=== PATIENT | female | born 1980 | race Caucasian/White ===

== ENCOUNTER 2016-10-12 07:30 | Inpatient (IN) | payer OTHER ==
[~2016-10-12 07:30] MED LIST: DEXTROSE 5%-LACTATED RINGERS 1,000 ML IV SCH
--- NOTE | 2016-10-12 08:46 | PN ---
Progress Note (short form) - Note Progress Note: cx 3 cm 75 vx -3 mi, fhr cat1, pitocin rba discussed
[2016-10-12] MEDS ORDERED: BUTORPHANOL TARTRATE 1 MG/ML VIAL IVPUSH PRN (08:47)
[2016-10-12] MEDS ORDERED: PROMETHAZINE HCL 25 MG/1 ML VIAL IVPUSH ONE (08:47)
[2016-10-12] MEDS ORDERED: OXYTOCIN 15 UNITS/ LR 250 ML 250 ML IV SCH (09:00)
[2016-10-12] MEDS ORDERED: DEXTROSE 5%-LACTATED RINGERS 1,000 ML IV SCH (09:00)
[2016-10-12 09:32] LABS: BASOPHIL 0.5 % (0-2.0); EOSINOPHIL 2.1 % (0-4.5); MCH 20.9 pg (25.7-33.7); MCHC 31.1 g/dl (32.0-36.0); MEAN CELL VOLUME 67.3 fl (80-96); MEAN PLT VOLUME 8.7 fl (7.5-11.1); NEUTROPHILS 73.4 % (42.8-82.8); PLATELET COUNT 146 K/MM3 (134-434); RDW 17.6 % (11.6-15.6); WHITE BLOOD COUNT 5.8 K/mm3 (4.0-10.0)
[2016-10-12 09:45] LABS: INR 0.89 (0.82-1.09); PROTHROMBIN TIME (PATIENT) 9.8 SEC (9.98-11.88)
[2016-10-12 09:48] LABS: ACTIVATED PTT 25.1 SECONDS (26.9-34.4)
[2016-10-12 09:50] LABS: ANION GAP 9 (8-16); CALCIUM 8.4 mg/dL (8.5-10.1); CO2 24 mmol/L (21-32); CREATININE 0.6 mg/dL (0.55-1.02); GLUCOSE,RANDOM 76 mg/dL (74-106)
[2016-10-12 10:04] LABS: ANISOCYTOSIS 1+; HYPOCHROMIA 3+; MICROCYTOSIS 1+; PLATELET ESTIMATE ADEQUATE (NORMAL); POLYCHROMASIA 1+
[2016-10-12 10:07] VITALS: BMI 51.5
[2016-10-12] MEDS ORDERED: TUBERCULIN PPD 5 TU/0.1ML SYRINGE (IN PATIENT USE ONLY) ID ONE (11:00)
--- NOTE | 2016-10-12 15:43 | PN ---
Progress Note (short form) - Note Progress Note: cx 4 cm 880 vx -3 mi, fjhr cat1, contraction q 3 min
[2016-10-12] MEDS: FENTANYL/BUPIVACAINE/NS/PF - PCEA - 50 ML DISP.SYRIN EP SCH (17:15)
[2016-10-12] MEDS ORDERED: ELECTROLYTE-148 SOLN 500 ML IV SCH (19:00)
--- NOTE | 2016-10-12 19:32 | PN ---
Progress Note (short form) - Note Progress Note: cx full 100 vx 0 mi arom, clear ,wants to push
--- NOTE | 2016-10-12 19:38 | HP ---
Past Medical History - Primary Care Physician PCP:: Terrell Gutiérrez - Admission Chief Complaint: 39 weeks, labor History of Present Illness: 36 yo f g 2 p1001 edc 10/13/16 cx 3 cm 75 vx -3 mi, fhr cat 1, irregular contraction History Source: Patient Limitations to Obtaining History: No Limitations - Past Medical History Pulmonary: Yes: Sleep Apnea Gastrointestinal: Yes: GERD ...: 2 ...Para: 1 ...Term: 0 ...: 0 ...Spon : 0 ...Induced : 0 ...Multiple Gestation: 0 ...LMP: 01/08/16 ... Weeks Gestation by Dates: 39.6 ...EDC by Dates: 10/13/16 ...EDC by Sono: 10/13/16 Heme/Onc: Yes: Anemia - Past Surgical History Past Surgical History: Yes: Bariatric Surgery (s/p abdominoplasty, liposuction) Hx Myomectomy: No Hx Transabdominal Cerclage: No Additional Surgical History: nerve ablation lt foot. abdominopalsty, liposuction - Smoking History Smoking history: Never smoked Have you smoked in the past 12 months: No Aproximately how many cigarettes per day: 0 - Alcohol/Substance Use Hx Alcohol Use: No - Social History History of Recent Travel: No Home Medications - Allergies Allergies/Adverse Reactions: Allergies Allergy/AdvReac Type Severity Reaction Status Date / Time No Known Allergies Allergy Verified 10/12/16 17:55 - Home Medications Home Medications: Ambulatory Orders Vit/Iron Fumarate/FA [ Tablet] 1 tablet PO DAILY 01/16/15 Calcium Carbonate [Calcium] 1 tab PO DAILY 10/12/16 Review of Systems - Review of Systems Constitutional: reports: No Symptoms Eyes: reports: No Symptoms HENT: reports: No Symptoms Neck: reports: No Symptoms Cardiovascular: reports: No Symptoms Respiratory: reports: No Symptoms Gastrointestinal: reports: Abdominal Pain Genitourinary: reports: No Symptoms Integumentary: reports: No Symptoms Neurological: reports: No Symptoms Endocrine: reports: No Symptoms Hematology/Lymphatic: reports: No Symptoms Psychiatric: reports: No Symptoms Physical Exam - Maternity Vital Signs: Vital Signs Temperature 97.9 F 10/12/16 18:23 Pulse Rate 91 H 10/12/16 18:45 Respiratory Rate 18 10/12/16 18:45 Blood Pressure 124/78 10/12/16 18:45 O2 Sat by Pulse Oximetry (%) 100 10/12/16 18:45 Constitutional: Yes: Well Nourished, No Distress, Calm, Obese Eyes: Yes: WNL, Conjunctiva Clear, EOM Intact HENT: Yes: WNL, Atraumatic, Normocephalic Neck: Yes: WNL, Supple, Trachea Midline Cardiovascular: Yes: WNL, Regular Rate and Rhythm Breast(s): Yes: WNL - Abdominal Exam/OB Fundal Height: 40 Number of Fetuses: Single Presentation: Vertex Contractions: Yes Regularity: Irregular Intensity: Mild/Mod Monitor Mode: External Heart Rate Location: [facility] Category: I Accelerations: Uniform Decelerations: None - Vaginal Exam/OB Vaginal Bleediing: No Speculum Exam: No Dilatation (cm): 3 cm Effacement (%): 75 Amniotic Membrane Status: Intact Presentation: Vertex/Position Station: -3 - Physical Exam Musculoskeletal: Yes: WNL Extremities: Yes: WNL Edema: RLE: 1+ Integumentary: Yes: WNL Deep Tendon Reflex Grade: Normal +2 ...Motor Strength: WNL Psychiatric: Yes: WNL - Labs Lab Results: CBC, BMP 10/12/16 09:03 10/12/16 09:03 Hemorrhage Risk Assessment - Risk Factors Medium Risk Factors: Yes: None High Risk Factors: Yes: None Risk Score: 1 Risk Level: Medium Risk Problem List - Problems (1) with 39 completed weeks gestation Code(s): Z3A.39 - 39 WEEKS GESTATION OF (2) First stage of labor established Code(s): RRA0733 - (3) Obesity Code(s): E66.9 - OBESITY, UNSPECIFIED Qualifiers: Obesity type: due to excess calories (4) Previous gastric bypass affecting in third trimester, antepartum Code(s): O99.843 - BARIATRIC SURGERY STATUS COMP , THIRD TRIMESTER Assessment/Plan plan admit, fhm , pitocin rba discussed, agreed to have pitocin
[2016-10-12] MEDS ORDERED: WITCH HAZEL 50% (TUCKS) 40 PAD/JAR PAD TP PRN (19:55)
[2016-10-12] MEDS ORDERED: METHYLERGONOVINE MALEATE 0.2 MG/1 ML AMP IM PRN (19:55)
[2016-10-12] MEDS ORDERED: BENZOCAINE 28 GM HEMORRHOIDAL OINTMENT TP PRN (19:55)
[2016-10-12] MEDS ORDERED: BISACODYL 10 MG SUPP.RECT RC PRN (19:55)
[2016-10-12] MEDS ORDERED: BENZOCAINE 20% 57 GM BOTTLE TP PRN (19:55)
[2016-10-12] MEDS ORDERED: ELECTROLYTE-148 SOLN 1,000 ML IV SCH (20:00)
[2016-10-12] MEDS ORDERED: D5W-LR W/ 20 UNITS OXYTOCIN 1,000 ML IV SCH (20:00)
[2016-10-12] MEDS: IBUPROFEN 600 MG TABLET (FP) PO PRN (20:00)
[2016-10-12] MEDS: FERROUS SO4 325 MG TABLET (FP) PO SCH (23:27)
[2016-10-12] MEDS: oxyCODONE HCL 5 MG TABLET PO PRN (23:27)
[2016-10-12] MEDS: ACETAMINOPHEN 325 MG TABLET (FP) PO PRN (23:28)
[2016-10-13] MEDS: ACETAMINOPHEN 325 MG TABLET (FP) PO PRN ×2 (02:51→10:24)
[2016-10-13] MEDS: oxyCODONE HCL 5 MG TABLET PO PRN ×3 (02:51→23:53)
--- NOTE | 2016-10-13 07:28 | PN ---
Progress Note (short form) - Note Progress Note: ppd 1 doing well, no c//o no dizziness , no excess vaginal bleeding CBC, BMP 10/12/16 09:03 10/12/16 09:03 Last Vital Signs Temp Pulse Resp BP Pulse Ox 98.2 F 67 18 114/67 98 10/13/16 06:00 10/13/16 06:00 10/13/16 06:00 10/13/16 06:00 10/12/16 20:30 abdomen soft, no distension, no cav utrus firm, non tender lochia mild no calf tenderness plan ambulate, cbc, iron, vit Problem List - Problems (1) with 39 completed weeks gestation Code(s): Z3A.39 - 39 WEEKS GESTATION OF (2) First stage of labor established Code(s): [id number] - (3) Obesity Code(s): E66.9 - OBESITY, UNSPECIFIED Qualifiers: Obesity type: due to excess calories (4) Previous gastric bypass affecting in third trimester, antepartum Code(s): O99.843 - BARIATRIC SURGERY STATUS COMP , THIRD TRIMESTER
[2016-10-13 07:57] LABS: BASOPHIL 0.5 % (0-2.0); EOSINOPHIL 0.9 % (0-4.5); MCH 21.2 pg (25.7-33.7); MCHC 31.7 g/dl (32.0-36.0); MEAN PLT VOLUME 8.8 fl (7.5-11.1); RDW 17.6 % (11.6-15.6); WHITE BLOOD COUNT 7.5 K/mm3 (4.0-10.0)
[2016-10-13 09:03] LABS: PLATELET COMMENT2 NO CLOTTING DETECTED; PLATELET COUNT 147 K/MM3 (134-434); PLATELET ESTIMATE ADEQUATE (NORMAL)
[2016-10-13] MEDS ORDERED: DIPHTH,PERTUSS(ACELL),TET 0.5 ML DISP.SYRIN IM ONE (10:00)
[2016-10-13] MEDS: PRENATAL VITAMINS W/ FOLIC ACID TABLET (FP) PO SCH (10:17)
[2016-10-13] MEDS: FERROUS SO4 325 MG TABLET (FP) PO SCH ×2 (10:18→21:08)
[2016-10-13] MEDS ORDERED: diphenhydrAMINE HCL 25 MG CAPSULE (FP) PO ONE (22:00)
[2016-10-13] MEDS ORDERED: SENNOSIDES/DOCUSATE COMBO (SENNA PLUS) TABLET (UD) PO PRN (22:00)
[2016-10-13 22:18] VITALS: TEMP 97.9
[2016-10-13] MEDS: IBUPROFEN 600 MG TABLET (FP) PO PRN (23:56)
--- NOTE | 2016-10-14 01:29 | PN ---
Post Progress Note - Subjective Subjective: Patient without acute complaints. Reports tolerating oral intake without nausea or vomiting. Ambulating without dizziness. Denies fevers or chills. Pain well controlled with oral pain medication. without difficulty. Passing flatus. Post Day: 2 Type of Delivery: Vital Signs: Vital Signs Temperature 97.9 F 10/13/16 22:00 Pulse Rate 87 10/13/16 22:00 Respiratory Rate 18 10/13/16 22:00 Blood Pressure 113/50 10/13/16 22:00 O2 Sat by Pulse Oximetry (%) 98 10/12/16 20:30 Breast Exam: Yes: Engorged Uterus: Yes: Fundus Firm Abdomen/GI: Yes: Abdomen soft, Passing flatus, Tolerating PO. No: Tender Lochia: Yes: Serosa Lochia, amount: Small Extremities: Yes: Calves non-tender. No: Edema Activity: Ambulating - Labs Labs: CBC WBC 7.5 K/mm3 (4.0-10.0) 10/13/16 07:09 RBC 3.86 M/mm3 (3.60-5.2) 10/13/16 07:09 Hgb 8.2 GM/dL (10.7-15.3) L 10/13/16 07:09 Hct 25.9 % (32.4-45.2) L 10/13/16 07:09 MCV 67.0 fl (80-96) L 10/13/16 07:09 MCH 21.2 pg (25.7-33.7) L 10/13/16 07:09 MCHC 31.7 g/dl (32.0-36.0) L 10/13/16 07:09 RDW 17.6 % (11.6-15.6) H 10/13/16 07:09 Plt Count 147 K/MM3 (134-434) 10/13/16 07:09 MPV 8.8 fl (7.5-11.1) 10/13/16 07:09 Neutrophils % 75.0 % (42.8-82.8) 10/13/16 07:09 Lymphocytes % 16.7 % (8-40) 10/13/16 07:09 Monocytes % 6.9 % (3.8-10.2) 10/13/16 07:09 Eosinophils % 0.9 % (0-4.5) 10/13/16 07:09 Basophils % 0.5 % (0-2.0) 10/13/16 07:09 Hypochromia 3+ 10/12/16 09:03 Platelet Estimate Adequate (NORMAL) 10/13/16 07:09 Platelet Comment No clumping noted 10/13/16 07:09 Platelet Comment No clotting detected 10/13/16 07:09 Polychromasia 1+ 10/12/16 09:03 Anisocytosis 1+ 10/12/16 09:03 Microcytosis 1+ 10/12/16 09:03 Assessment/Plan 36 yo PPD # 2 s/p , afebrile, vital signs stable, doing well 1. Patient stable for discharge home today. 2. Patient encouraged to contact MD for: - Severe pain not controlled by oral pain medication - Fevers or chills - Nausea or vomiting, intolerance of oral intake 3. Patient to follow up in office in 4-6 weeks for visit
[2016-10-14 08:37] VITALS: BP 113/60; PULSE 74
[2016-10-14] MEDS: FENTANYL/BUPIVACAINE/NS/PF - PCEA - 50 ML DISP.SYRIN EP SCH (09:11)
[2016-10-14] MEDS: PRENATAL VITAMINS W/ FOLIC ACID TABLET (FP) PO SCH (09:31)
[2016-10-14] MEDS: FERROUS SO4 325 MG TABLET (FP) PO SCH (09:32)
--- NOTE | 2016-10-14 10:59 | DS ---
Physical Exam-TELEVISION AGENT Vital Signs: Vital Signs Temperature 97.9 F 10/14/16 08:31 Pulse Rate 74 10/14/16 08:31 Respiratory Rate 20 10/14/16 08:31 Blood Pressure 113/60 10/14/16 08:31 O2 Sat by Pulse Oximetry (%) 98 10/12/16 20:30 Labs: CBC, BMP 10/13/16 07:09 10/12/16 09:03 Delivery - Delivery Type of Anesthesia: Epidural Episiotomy/Laceration: None EBL (cc): 300 Delivery, Single - Stages of Labor Date 1st Stage Initiatied: 10/12/16 Time 1st Stage Initiated: 16:30 Date 2nd Stage Initiated: 10/12/16 Time 2nd Stage Initiated: 19:15 Date of Delivery: 10/12/16 Time of Delivery: 19:43 Time Placenta Delivered: 19:45 - Condition of Knifeman/Certified Nurse Operating Room Present: No Infant Gender: Male Weight: 9 lb Position: OA Total Hours ROM (Hrs/Mins): 20 MINS - 1 Minute Total Score: 9 5 Minutes Total Score: 9 - [place] Feeding Plan Initial Plan: Exclusive throughout hospitalization Discharge Summary Reason For Visit: INDUCTION OF LABOR Current Active Problems First stage of labor established (Acute) Obesity (Acute) with 39 completed weeks gestation (Acute) Previous gastric bypass affecting in third trimester, antepartum ( Acute) Procedures: Principal: vaginal delivery Hospital Course: Patient admitted in early labor, augmented with pitocin, s/p Remained afebrile, vital signs stable for discharge home PPD#2 Condition: Good - Instructions Diet, Activity, Other Instructions: Physical activity Resume your normal everyday activity as tolerated no heavy lifting or exercise until seen by your surgeon. You may walk unlimited bonilla of and climb stairs. You may resume driving the car when you feel safe and comfortable behind the wheel. No sexual activity as instructed. Diet There are no dietary restrictions. Eat healthy, high-fiber foods. Drink 6 to 8 glasses of liquid each day. This will assist in keeping your bowels are regular. Pain management You may take Tylenol or acetaminophen or Ibuprofen (for example, Motrin, Advil etc.) from my pain prescription medication is ordered should be taken as prescribed for moderate to severe pain. Call MD for any of the following: Severe pain not relieved by medication Fever of 101 or higher Excessive bleeding or drainage on dressing Inability to urinate Disposition: HOME - Home Medications Comprehensive Discharge Medication List: Ambulatory Orders Vit/Iron Fumarate/FA [ Tablet] 1 tablet PO DAILY 01/16/15 Calcium Carbonate [Calcium] 1 tab PO DAILY 10/12/16
== END 2016-10-14 14:10 | disposition home or self-care (01) | DRG 775 ==
LOC: JLDR 07:30 → J3W 21:45
PROVIDERS: ADMIT Obstetrics & Gynecology; ATTEND Obstetrics & Gynecology
PROC: 10E0XZZ Delivery of Products of Conception, External Approach (ICD-10-PCS; principal; 2016-10-12)
PROC: 4A1HXCZ Monitoring of Products of Conception, Cardiac Rate, External Approach (ICD-10-PCS; 2016-10-12)
PROC: 3E0R3CZ (ICD-10-PCS; 2016-10-12)
DX: O99.214 Obesity complicating childbirth (principal); Z68.43 Body mass index [BMI] 50.0-59.9, adult; E66.9 Obesity, unspecified; O99.843 Bariatric surgery status complicating pregnancy, third trimester; O99.013 Anemia complicating pregnancy, third trimester; D64.9 Anemia, unspecified; O26.893 Other specified pregnancy related conditions, third trimester; K21.9 Gastro-esophageal reflux disease without esophagitis; G47.30 Sleep apnea, unspecified; Z3A.39 39 weeks gestation of pregnancy; Z37.0 Single live birth
CPT/HCPCS: 36415; 59409; 80048; 85025; 85461; 85610; 85730; 86593; 86850; 86900; 86901; 90715